=== PATIENT | male | born 1990 | race Caucasian/White ===

== ENCOUNTER 2024-05-16 07:54 | Outpatient (OUT) | payer OTHER, SELFPAY ==
[2024-05-16 08:15] LABS: Basophils Percent Auto 0.3 % (0.2-2.0); Eosinophils Absolute Auto 0.2 10^3/uL (0.0-0.7); Eosinophils Percent Auto 1.7 % (0.9-7.0); Hematocrit 45.9 % (42.0-54.0); Hemoglobin 15.5 g/dL (14.0-18.0); Immature Granulocytes Abs Auto 0.01 10^3/uL (0.00-0.03); Immature Granulocytes Pct Auto 0.1 % (0.0-0.5); Lymphocytes Absolute Auto 2.5 10^3/uL (1.2-3.8); Lymphocytes Percent Auto 26.5 % (20.5-60.0); Mean Corpuscular HGB Conc 33.8 g/dL (29.9-35.2); Mean Corpuscular Hemoglobin 29.8 pg (25.9-34.0); Mean Corpuscular Volume 88.3 fL (80.0-94.0); Mean Platelet Volume 9.9 fL (9.5-13.5); Monocytes Absolute Auto 0.6 10^3/uL (0.3-0.8); Monocytes Percent Auto 6.5 % (1.7-12.0); Neutrophils Absolute Auto 6.2 10^3/uL (1.4-6.5); Neutrophils Percent Auto 64.9 % (43.0-75.0); Platelet Count 251 10^3/uL (150-450); Red Cell Distribution Width 13.1 % (11.0-15.0); White Blood Count 9.5 10^3/uL (4.0-11.0)
[2024-05-16 08:27] LABS: Estimated Average Glucose 108 mg/dL; Glycohemoglobin A1C 5.4 % (4.5-6.2)
[2024-05-16 09:03] LABS: Alanine Aminotransferase 69 U/L (16-63); Albumin Globulin Ratio 1.1; Albumin Level 3.6 g/dL (3.4-5.0); Alkaline Phosphatase 80 U/L (46-116); Anion Gap 9.5; Aspartate Amino Transferase 48 U/L (15-37); BUN Creatinine Ratio 14.4; Bilirubin Total 0.3 mg/dL (0.2-1.0); Calcium 9.2 mg/dL (8.5-10.1); Carbon Dioxide 31.7 mmol/L (21.0-32.0); Chloride 105 mmol/L (98-107); Chol HDL Ratio 6.5; Cholesterol 207 mg/dL (<=200); Estimated GFR (African America >60 (>=60); Estimated GFR (Non-African Ame >60 (>=60); Free T3 2.98 pg/mL (2.18-3.98); Globulin 3.4 g/dL; Glucose 100 mg/dL (74-106); HDL Cholesterol 32 mg/dL (40-60); Potassium 4.2 mmol/L (3.5-5.1); Sodium 142 mmol/L (136-145); Thyroid Stimulating Hormone 2.074 uIU/mL (0.358-3.740); Triglycerides 122 mg/dL (<=150); VLDL CHOLESTEROL 24.4 mg/dL
[2024-05-18 13:08] LABS: Insulin 27.7 uIU/mL (2.6-24.9)
== END 2024-05-16 07:55 | disposition home or self-care (01) ==
PROVIDERS: PCP Family Medicine; Visit Provider Family Medicine
DX: Z00.00 Encounter for general adult medical examination without abnormal findings (principal)
CPT/HCPCS: 36415; 80053; 80061; 83036; 83525; 84436; 84443; 84481; 85025

== ENCOUNTER 2024-06-05 08:34 | Outpatient (OUT) | payer OTHER, SELFPAY ==
[2024-06-05 09:16] LABS: Alanine Aminotransferase 41 U/L (16-63); Albumin Level 3.5 g/dL (3.4-5.0); Alkaline Phosphatase 78 U/L (46-116); Anion Gap 11.1; Aspartate Amino Transferase 23 U/L (15-37); BUN Creatinine Ratio 9.2; Bilirubin Total 0.5 mg/dL (0.2-1.0); Calcium 9.3 mg/dL (8.5-10.1); Carbon Dioxide 27.4 mmol/L (21.0-32.0); Chloride 104 mmol/L (98-107); Estimated GFR (African America >60 (>=60 mL/min/1.73m^2); Estimated GFR (Non-African Ame >60 (>=60 mL/min/1.73m^2); Globulin 3.4 g/dL; Glucose 84 mg/dL (74-106); Potassium 3.5 mmol/L (3.5-5.1); Sodium 139 mmol/L (136-145); Total Protein 6.9 g/dL (6.4-8.2)
[2024-06-06 06:09] LABS: HBsAg Screen Negative (Negative); HCV Ab Non Reactive (Non Reactive); Hep A Ab, IgM Negative (Negative); Hep B Core Ab, IgM Negative (Negative)
[2024-06-08 20:08] LABS: Neisseria gonorrhoeae, NAA Negative (Negative)
== END 2024-06-05 08:35 | disposition home or self-care (01) ==
LOC: LAB 08:35
PROVIDERS: PCP Family Medicine; Visit Provider Family Medicine
DX: R74.8 Abnormal levels of other serum enzymes (principal); Z20.2 Contact with and (suspected) exposure to infections with a predominantly sexual mode of transmission
CPT/HCPCS: 36415; 80053; 80074; 87491; 87591

== ENCOUNTER 2025-07-03 09:04 | Outpatient (OUT) | payer OTHER, SELFPAY ==
--- OUTSIDE RECORDS SUMMARY | 2025-07-02 05:30 | XMS_ITS ---
Author Organization [facility] in [place] Address [address] [place] [address] Care Team Providers Care Kiln Repairer Name Role Phone Darrel Berger Primary Care Provider [phone] Allergies No Known Allergies REASON FOR VISIT annual Medications Medication SIG (Take, Route, Frequency, Duration) Notes Start Date End Date Status Omeprazole 40 MG TAKE 1 CAPSULE BY [facility] 30 MINUTES BEFORE MORNING MEAL EVERY DAY FOR 30 DAYS Orally Once a day; Duration: 90 days Active Social History Tobacco Use: Social History Observation Description Date Details (start date - stop date) Former Smoker 05/03/2000 - 04/02/2023 Tobacco Control (Standard) Question Answer Notes Tobacco use: Former smoker When did you start smoking?05/03/2000When did you stop smoking?04/02/2023UDIT-C (Standard) Question Answer Notes Did you have a drink containing alcohol in the p ast year? Yes How often did you have a drink containing alcohol in the past year?Never (0 point)How many drinks did you have on a typical day when you were drinking in the past year?1 or 2 drinks (0 point)How often did you have six or more drinks on one occasion in the past year?2 to 4 times a month (2 points)Points2 InterpretationNegative Vital Signs Weight 210.4 lbs 07/02/2025 Height 69.5 in 07/02/2025 Blood pressure systolic 124 mm Hg 07/02/20 25 Blood pressure diastolic 84 mm Hg 025 BMI 30.62 kg/m2 07/02/2025 Encounters Encounter Location Date Provider Diagnosis [facility] [address] [place] [address] 07/02/2025 Darrel Berger Well adult Z00.0 0 Assessments Encounter Date Diagnosis (ICD Code) Assessment Notes Treatment Notes Treatment Clinical Notes Section Notes 07/02/2025 Well adult (ICD-10 - Z00.00) Plan Of Treatment Medication Medication Name Sig Start Date Stop Date Notes Omeprazole 40 MG TAKE 1 CAPSULE BY [place] UT 30 MINUTES BEFORE MORNING MEAL EVERY DAY FOR 30 DAYS Orally Once a day; Duration: 90 days Pending Test Test Name Order Date HEMOGLOBIN A1C (GLYCO) 07/02/2025 LIPID PANEL (CHOL/TRIG/HDL/LDL) 07/02/20 25 THYROID PANEL (T4/TSH/FREE T3) CMP (COMP MET ZARATE) w/eGFR CKD-EPI 2024 CBC WITH DIFF 07/02/2025 Progress Notes * Alvaro CAIN BDOB:[birth year] (34 yo M)Acc No.[id number]:07/02/2025 UNLOCKED PROGRESS NOTE Progress Note Patient: Tracy BEAL Alvaro B :?Carlos Berger ([facility]), MDDOB:1990???Age: 34 Y???Sex:MaleDate:07/02/2025Phone:[phone]:[address] [place], [id number] In:09:20 AM ESTCheck Out:09:51 AM EST Subjective: * Chief Complaints: * 1 . Annual. * HPI: ???General:? OMeprazole working well for gerd. ???Depression Screening:?PHQ-2 (2015 Edition)?Little interest or pleasure in doing things? Not at all ?Feeling down, depressed, or hopeless??Not at all ?Total Score?0 * ROS: ???EENT:?hearing changes?denies.?visual changes?denies. non-healing mouth sores?denies.?swollen glands or neck lumps?denies.?hoarseness?denies.?sore throat?denies.?difficulty swallowing?denies.?nose bleeds?denies.?nasal congestion?denies.?ear ache?denies.?ear discharge denies.?ringing in ears?denies.?light sensitivity?denies.?eye pain?denies.?blurring?denies.?eye irritation?denies.?double vision?denies. vision loss?denies.?General/Constitutional:?Sweats:?Denies.?Fatigue?denies.?Sleep proble ms?denies.?Anorexia?denies.?Malaise?denies.?Weight loss?denies. Fatigue or Weakness?denies.?Fever or Chills?denies.?Cardiovascular:?Shortness of Breath w/lying flat?denies.?Lightheadedne ss/dizziness?denies.?Chest tightness/ heavy pressure?denies.?Swelling of legs, a nkles, or feet?denies.?Waking up with shortness of breath?denies.?Chest pain&#16 0;denies.?Palpitations?denies.?Weight gain?denies.?Respiratory:?Chronic or frequent cough?denies.?Coughing up blood&#1 60;denies.?Difficulty breathing?denies.?Productive cough?denies.?Snoring&#1 60;denies.?Shortness of breath that awakens from sleep (PND)?denies.?Chest pain? denies.?Sputum production?denies.?Wheezing?denies.?Musculoskeletal:?Joint pain?denies.?Joint Fluid?denies.?Backpain?denies.?Knee pain?denies.?Neck pain?denies.?Joint Stiffness?denies.?Muscle cramps?denies.?Weakness of muscles?denies.?Arthritis?denies.?Muscle aches?denies.?Pain in shoulder(s)?denies.?Swollen joints?denies.? * Medical History: G ERD (gastroesophageal reflux disease), Asthma. * Surgical History: s urgical repair lt thumb fracture , Tonsillectomy . * Hospitalization/Major Diagno stic Procedure: D enies Past Hospitalization. * Family History: F ather: , COPD, Asthma, diagnosed with Hypertension, Heart Disease. M other: alive. B rother(s): alive, diagnosed with Heart Disease. S ister(s): alive. 1 brother(s) , 1 sister(s) . 2 son(s) , 4 daughter(s) . . * Social History: ???Tobacco Use:?Tobacco Control (Standard)?Tobacco use:?Former smoker ?When did you start smoking??05/03/2000 ?When did you stop smoking??04/02/2023 ???Drug/Alcohol:?AUDIT-C (Standard)?Did you have a drink containing alcohol in the past year??Yes ?How often did you have a drink containing alcohol in the past year?? Never (0 point) ?How many drinks did you have on a typical daywhen you were drinking in the past year??1 or 2 drinks (0 point) ?How often did you have six or more drinks on one occasion in the past year??2 to 4 times a month (2 points) ?Points?2 ?Interpretation?Negative * Medications: T aking Omeprazole 40 MG Capsule Delayed Release TAKE 1 CAPSULE BY MOUTH 30 MINUTES BEFORE MORNING MEAL EVERY DAY FOR 30 DAYS , Discontinued Adipex-P(Phentermine HCl) 37.5 MG Tablet 1 tablet before breakfast Orally Once a day , Discontinued Azithromycin 250 MG Tablet 4 tabs once Orally daily , Discontinued Ciprofloxacin HCl 500 MG Tablet 1 tablet Orally every 12 hrs , Discontinued Multivitamin(Multiple Vitamin) - Tablet 1 tablet Orally Once a day , Medication List reviewed and reconciled with the patient * Allergies: N .K.D.A. Objective: * Vitals: W t:210.4lbs, Ht: 69.5 in, BP:124/84mm Hg, BMI:30.62Index, Ht-cm: 176.53 cm, Wt- k.44 kg. * Examination: ???Physical Exam: ?GENERAL:?well developed, well nourished, in no acute distress.?HEAD:?normocephalic/atraumatic.?EYES:?pupils equal, round and reactive to light, conjunctivae and sclerae normal.?EARS:?no deformity or lesion of external ear, canals and TM appear normal bilaterally, TM's intact, not inflamed with normal light reflex, hearing grossly normal to conversational speech.?NOSE:?no deformity, discharge, inflammation, or lesions. ?MOUTH:?mucous membranes moist, normal oropharynx and posterior pharynx without lesions or exudates, tongue normal, dentition normal.?NECK:?neck supple, no masses or palpable cervical nodes, trachea midline, thyroid without nodules, masses, tenderness, or enlargement.?CHEST:?no chest wall deformity, no chest wall tenderness. ?LUNGS:?normal respiratory effort and clear to auscultation, no wheezes, rales, or rhonchi, good air exchange.?CARDIO:?regular rate and rhythm, normal S1 and S2, nor murmur, rub, or gallop.?PULSES:?normal capillary refill.?ABDOMEN:?soft, non-distended, non-tender, no masses.?MUSCULOSKELETAL:?no deformity or scoliosis noted, normal range of motion, joints normal, no erythema, edema, effusion, or ecchymosis.?EXTREMITY:?no clubbing, cyanosis, edema, or deformity withnormal ROM in both upper and lower bilateral extremities.?NEUROLOGIC:?grossly normal.?SKIN:?no rashes, ulcerations, or suspicious lesions.?LYMPH NODES:?no cervical adenopathy, nodes normal.?MENTAL STATUS:?alert and oriented x3, normal mood and affect.? Assessment: * Assessment: 1.?Well adult - Z00.00 (Primary)??? Plan: * Treatment: Refill Omeprazole Capsule Delayed Release, 40 MG, TAKE 1 CAPSULE BY MOUTH 30 MINUTES BEFORE MORNINGMEAL EVERY DAY FOR 30 DAYS, Orally, Once a day, 90 days, 90, Refills 3.?LAB: HEMOGLOBIN A1C (GLYCO) ?LAB: LIPID PANEL (CHOL/TRIG/HDL/LDL) ?LAB: THYROID PANEL (T4/TSH/FREE T3) ?LAB: CMP (COMP MET ZARATE) w/eGFR CKD-EPI ?LAB: CBC WITH DIFF * * Electronic signature of Darrel Berger MD, [id number] on 07/03/2025 at 09:09 AM EDT Sign off status: PendingVisit Status:?CHK (Check Out) * Provider: Leander Berger ([facility])MD Date: Generated for Printing/Faxing/eTransmitting on:?07/03/2025 09:09 AM EDT History and Physical Notes * HPI (History of Present Illness) CategorySub-CategoryDetailNotesCategory NotesGeneralOMeprazole working well for gerdDepression ScreeningPHQ-2 (2015 Edition)Little interest or pleasure in doing things?: Not at allFeeling down, depressed, or hopeless?: Not at allTotal Score: 0 Examination CategorySub-CategoryDetailNotesCategory NotesPhysical ExamGENERAL:well developed, well nourished, in no acute distressHEAD:normocephalic/atraumatic EYES:pupils equal, round and reactive to light, conjunctivae and sclerae normal EARS:no deformity or lesion of external ear, canals and TM appear normal bilaterally, TM's intact, not inflamed with normal light reflex, hearing grossly normal to conversational speechNOSE:no deformity, discharge, inflammation, or lesionsMOUTH:mucous membranes moist, normal oropharynx and posterior pharynx without lesions or exudates, tonguenormal, dentition normalNECK:neck supple, no masses or palpable cervical nodes, trachea midline, thyroid without nodules, masses, tenderness, or enlargementCHEST:no chest wall deformity, no chest wall tendernessLUNGS:normal respiratory effort and clear to auscultation, no wheezes, rales, or rhonchi, good air exchangeCARDIO:regular rate and rhythm, normal S1 and S2, nor murmur, rub, or gallopPULSES:normal capillary refillABDOMEN:soft, non-distended, non-tender, no massesRECTAL:MUSCULOSKELETAL:no deformity or scoliosis noted, normal range of motion, joints normal, no erythema, edema, effusion, or ecchymosisEXTREMITY:no clubbing, cyanosis, edema, or deformity with normal ROM in both upper and lower bilateral extremitiesNEUROLOGIC:grossly normalSKIN:no rashes, ulcerations, or suspicious lesionsLYMPH NODES:no cervical adenopathy, nodes normalMENTAL STATUS:alert and oriented x3, normal mood and affect
--- OUTSIDE RECORDS SUMMARY | 2025-07-03 09:09 | XMS_ITS | CCD ---
Author Organization [facility] Care Team Providers Care Green Marketing Analyst Name Role Phone VIDAL ROLON Admitting Unavailable JEFFERSONHEIMVIDAL Attending Unavailable HOUSE, JORGITO Referring Unavailable HOUSE, JORGITO Primary Care Unavailable MI Procedure Practitioner Unavailab VIDAL Neil Surgeon Unavailable MI Procedure Practitioner Unavailab KRISTIE Ortiz Surgeon Unavailable JANES, MARTÍNEZ Admitting Unavailable MARTÍNEZ MARRERO Attending Unavailable SELF, REFERRED Referring Unavailable HOUSE, JORGITO Primary Care Unavailable HOUSE, DR DAY Primary Care Unavailable HOUSE, DR DAY Consulting Unavailable WAKEFIELD, DR DAY Attending Unavailable HOUSE, DR DAY Admitting Unavailable LEANA, DR FITO Molina Consulting Unavailable HOUSE, DR DAY Primary Care Unavailable TIFFANIE, MERRITT Admitting Unavailable TIFFANIE, MERRITT Consulting Unavailable TIFFANIE, MERRITT Attending Unavailable TIFFANIE, MERRITT Attending Unavailable CARLOTTA, DR DAY Primary Care Unavailable TIFFANIE, MERRITT Admitting Unavailable TIFFANIE, MERRITT Consulting Unavailable CARLOTTA, DR DAY Admitting Unavailable HOUSE, DR DAY Attending Unavailable Nieves Baldwin Unavailable Medications Current Medications MedicationDrug Class(es)DatesSig (Normalized)Sig (Original)amoxicillin 500 mg oral tablet (1 source)Penicillin-class AntibacterialStart: 30-34-3280osus 1 tablet by mouth every eight hoursAmoxicillin 500 MG 1 tablet Orally Three times a day for 10 day(s) Jun, ActiveCortisporin Otic 1%-0.35%-1000 units/ml (1 source)Start: 39-81-5792Lsgqkzyckow Otic 1%-0.35%-1000 units/ml 3 drops left ear tid for 7 days Jun, ActiveOmeprazole (1 source)Proton Pump InhibitorPriLOSEC Active Problems Active Problems Problem ClassificationProblemDateDocumented DateEpisodic/ChronicEsophageal disorders (1 source)Gastro-esophageal reflux disease without esophagitis; Translations: [GERD WITHOUT ESOPHAGITIS]Onset: 99-59-9200AldmmskWgxrpetdqmacs and screening for infectious disease (4 sources)Encounter for immunization; Translations: [ENCOUNTER FOR IMMUNIZATION]Onset: 63-87-6231Ickanpba Past or Other Problems Problem ClassificationProblemDateDocumented DateEpisodic/ChronicAbdominal pain (4 sources)Unspecified abdominal pain; Translations: [UNSPECIFIED ABDOMINAL PAIN]Onset: 66-04-0333DqbcgixkIxkub ear and sense organ disorders (1 source)Unspecified acute noninfective otitis externa, left ear; Translations: [Acute otitis externa of left ear, unspecified type H60.502]Onset: 06-14-2021 Resolved: 65-88-6451FszgliycHgrcqc media and related conditions (1 source)Otitis media, unspecified, unspecified ear; Translations: [Acute otitis media, unspecified otitis media type H66.90]Onset: 06-14-2021 Resolved: 80-71-2601Peqbkdyp Results Test NameValueInterpretationReference RangeFacilityHAND LEFT 2 VWSon 04-29-2020 HAND LEFT 2 VWSUniversity of [facility] Department of Radiology [address] [place] [id number] Patient Name: RICH CHONG : 1990 Sex: M Age: Race: White Pt. Location: Patient Status: Ordered Date: 04/29/2020 2:00:00 PM Completed Date: 04/29/2020 02:01 PM Requesting Provider: MARTÍNEZ MARRERO Attending Provider: Report Copy To: Signs & Symptoms: S69.92XD Unsp injury of left wrist, hand and finger(s), subs encntr I10 History: [place] Comments: Views (X-RAY, HAND): PA, Lateral Exam: HAND LEFT 2 VWS HAND LEFT 2 VWS 04/29/2020 2:01 PM CLINICAL INDICATIONS: S69.92XD Unsp injury of left wrist, hand and finger(s), subs encntr I10 TECHNOLOGIST COMMENTS: Follow up left hand injury about six weeks ago. QUESTION FOR THE RADIOLOGIST: Views (X-RAY, HAND): PA, Lateral PROTOCOL: AP(PA) and Lateral views were obtained. COMPARISON: 03/28/2020 FINDINGS: Comminuted tuft fracture of the first distal phalanx is redemonstrated. The distal fragment appears to be becoming well-corticated. No evidence of bridging callus. No significant soft tissue swelling. No malalignment or new fracture identified. IMPRESSION: Continued healing of thumb tuft fracture. Approved by:Yg Crisostomo04/29/2020 2:19 PM. I, Go Jones,have reviewed the images and reports Electronically signed: Go Jones. Transcribed by: [email or web address], User Resident: YG DODD Electronically Signed by: GO JONES @ 04/29/2020 02:53 PM I personally read this/these film(s) with this [facility] Medical CenterComment on above:Order Comment: Views (X-RAY, HAND): PA, LateralFINGER LEFT MIN 2 [facility] 90-59-2369TDTVNO LEFT MIN 2 [facility]Par[facility] Department of Radiology [address] [place] [id number] Patient Name: RICH CHONG : 1990 Sex: M Age: Race: White Pt. Location: 84 Patient Status: Ordered Date: 03/28/2020 2:10:00 PM Completed Date: 03/28/2020 02:09 PM Requesting Provider: MARTÍNEZ MARRERO Attending Provider: Report Copy To: Signs & Symptoms: M79.645 Pain in left finger(s) I10 History: Comments: Exam: FINGER LEFT MIN 2 VWS FINGER LEFT MIN 2 VWS 03/28/2020 2:09 PM CLINICAL INDICATIONS: M79.645 Pain in left finger(s) I10 TECHNOLOGIST COMMENTS: surgery to left hand 1st digit 03/15/20 follow up QUESTION FOR THE RADIOLOGIST: PROTOCOL: AP,Lateral and Oblique views were obtained. COMPARISON: None FINDINGS: Comminuted fracture distal tuft of the left thumb. This is likely an open fracture. Diffuse soft tissue swelling. Joint unremarkable. IMPRESSION: Comminuted open fracture distal tuft of the left Electronically signed: Raphael Edmond. Transcribed by: [email or web address], User Resident: Electronically Signed by: RAPHAEL EDMOND @ 03/28/2020 03:48 PMNormalThe [facility] Clinic [facility] HospitalOperative Reporton [id number] ReportMR#: [id number] S [facility] Pt. Name: Rich Chong Room #: 0C Discharge 03/15/2020 Date: Birthdate: 1990 OPERATIVE REPORT DATE OF SURGERY: 03/15/2020 SURGEON: Vidal Rolon M.D. Assistants: Richard Wynne MD Preop diagnosis: Left thumb distal phalanx fracture and nailbed injury Postop diagnosis: same Procedure performed: nail removal, nailbed repair, irrigation and debridement of open fracture Implants: none Anesthesia: MAC EBL: minimal Specimens: none Description of Procedure - Patient was met in the preop area where written consent was reviewed, and the correct limb was marked by Dr. Rolon. The patient was then brought back to the operating room and placed under local anesthesia with MAC, placed supine with arm board, and then prepped and draped in the usual sterile fashion. Preoperative antibiotics were given, a preoperative timeout was performed using 2 separate patient identifiers, and the correct surgical site was again confirmed by myself and Dr. Rolon. - We began by taking xrays to evaluate fracture and determined that the fracture fragment would not benefit from percutaneous pin placement. We then removed the nail beginning proximally by using [place]. After nail was removed, a transverse laceration was identified across the nailbed and probed down to bone. Fracture site was irrigated with saline then betadine then saline again. Laceration of nailbed was sutured with 5-0 chromic gut suture. A small piece of adaptic was placed under nail fold and sutured in place with 3-0 novofil. Additional sutures were used to fasten adaptic over nailbed. The site was again irrigated then covered in bacitracin. Dressing was applied. - All counts were correct and the patient was then successfully awoken from anesthesia and brought to the PACU without complication. - Plan is for patient to discharge from PACU with Rx for pain and to follow up in clinic in 10-14 days for postoperative evaluation. - Dr. Rolon was present for all critical portions of the case and made all decisions regarding the patients care. Electronically Signed by: Vidal Rolon M.D. 03/21/2020 04:10 P Vidal Rolon M.D. I was present for the martinez and critical portions and I was otherwise immediately available to assist. Date Dict: 03/15/2020/12:56 P/David Wynne MD Date Trans: 03/15/202012:56 P/ Copied/Pasted: 03/21/2020 02:18 P/renny ADKINS_JN:[id number] cc: Jorgito Laguerre D.O. [address] AbigailMer[facility] West HospitalyC[facility] Hospital [address]KgwqhiCspSt. John of God HospitalFINGER LEFT MIN 2 VWS on 55-58-6402NZPDFS LEFT MIN 2 VWSUniversselect medical cle[facility], [facility] Department of Radiology [address] [place] [phone] Patient Name: RICH CHONG : 1990 Sex: M Age: Race: White Pt. Location: Patient Status: O Ordered Date: 03/15/2020 7:10:00 AM Completed Date: 03/15/2020 11:28 AM Requesting Provider: VIDAL ROLON Attending Provider: VIDAL ROLON Report Copy To: Signs & Symptoms: Right thumb nail bed repair with pinning with History: Right thumb nail bed repair with pinning with Comments: Right thumb nail bed repair with pinning with Exam: FINGER LEFT MIN 2 VWS FINGER LEFT MIN 2 VWS 03/15/2020 11:28 AM CLINICAL INDICATIONS: Right thumb nail bed repair with pinning with TECHNOLOGIST COMMENTS: Intra op. Nail bed repair. Dr Rolon used 1 second of fluoro. Dose: 0.06mGy 2 images in PACS. QUESTION FOR THE RADIOLOGIST: Right thumb nail bed repair with pinning with PROTOCOL: AP,Lateral and Oblique views were obtained. COMPARISON: March 14, 2020 FINDINGS: 2 limited views of the left index were obtained intraoperatively using the C-arm documenting fluoroscopic guidance during hardware fixation of the terminal tuft fracture. Total fluoroscopy time is 1 second. Total radiation exposure is 0.06 mg. Images are referred to the clinical service for correlation. IMPRESSION: Images are obtained for documentation purposes. Electronically signed: Go Jones. Transcribed by: [email or web address], User Resident: Electronically Signed by: GO MARIEConnie @ 03/15/2020 03:36 PMNormalProMedica Defiance Regional HospitalComment on above:Order Comment: Right thumb nail bed repair with pinning with GLUCOSE LABon 97-17-5718Defpaah [Mass/Vol]105 mg/jTRnjb10-227SvgProMedica Defiance Regional HospitalComment on above:Performed By: #### [id number] #### [facility] [address]*MRSA/MSSA DNA NASALon 03-14-2020*MRSA/MSSA DNA NASAL Clinical Report: (D) Specimen: NASAL SWAB Collected: 03/14/2020 16:43 Status: Final Last Updated: 03/14/2020 23:13 MSSA DNA (Final) Methicillin Susceptible Staphylococcus aureus DNA Detected MRSA DNA (Final) NegativeNoCherrington HospitalComment on above:Performed By: #### [id number] #### [facility] [address]*SARS-CoV-2 COVID-19on 99-66-8725ZYTO-COVID-19Not Detected NormalNot DetectedThe [facility] HospitalComment on above:Order Comment: The Aptima SARS-CoV-2 assay is a nucleic acid amplification test intended for the qualitative detection of RNA from SARS-CoV-2 isolated and purified from nasopharyngeal (MUSIC COORDINATOR), nasal and oropharyngeal (OP) swab specimens from patients with signs and symptoms of infection who are suspected of COVID-19. Results are for the identification of SARS-CoV-2 RNA. The SARS-CoV-2 RNA is generally detectable in nasopharyngeal and oropharyngeal swabs during the acute phase of infection. The Aptima SARS-CoV-2 Assay on the [employer] system is intended for use by laboratory personnel specifically instructed and trained in the operation of the [employer] system. The Aptima SARS-CoV-2 assay is only for use under the Food and Drug Administration Emergency Use Authorization. Testing is limited to laboratories certified under the Clinical Laboratory Improvement Amendments of 1988 (CLIA), 42 U.S.C. ???263a, to perform high complexity tests. Not Detected: Not detected does not preclude SARS-CoV-2 infection and should not be used as the sole basis for patient management decisions. Not detected results must be combined with clinical observations, patient history, and epidemiological information.Performed By: #### 55059 #### [facility] [address] [place] [address], [facility] MEXICOAPTCobre Valley [facility] 48-52-7310aXTN Coag (Bld) [Time]28.2 sNormal 25.0-35.0The [facility] HospitalComment on above:Result Comment: ALL RESULTS MUST BE INTERPRETED WITH RESPECT TO BLOOD DRAWING ARTIFACT OR DILUTION ERROR OF ANTICOAGULANT AT THE TIME OF SAMPLING. THE APTT SHOULD NOT BE USED TO MONITOR UNFRACTIONATED HEPARIN THERAPY, THIS LABORATORY NO LONGER HAS AN ESTABLISHED THERAPEUTIC RANGE BASED ON THE APTT. IT IS RECOMMENDED THAT THE UFH - HEPARIN ASSAY (ANTI-XA ACTIVITY) BE USED FOR THIS PURPOSE.Performed By: #### [id number], 06020 #### [address] [place] [address], [facility] SOUTHER[facility] NEW MEXICOBASIC METABOLIC PANELon 28-60-7369Ppbxeus [Mass/Vol]9.8 mg/dLNormal8.6-10.3The [facility] HospitalComment on above: Performed By: #### 29198 #### [facility] [address] [facility] [place] [address], USAChloride [Moles/Vol]104 mmol/CUitthg83-819Ocl [facility] HospitalComment on above:Performed By: #### 96902 #### [facility] [address] [facility] [place] [address], USACO2 [Moles/Vol]26 mmol/VAzlklj37-25Xeg [facility] HospitalComment on above:Performed By: #### 65040 #### [facility] [address] [facility] [place] [address], USACreatinine [Mass/Vol]0.83 mg/dLNormal0.70-1.30The [facility] HospitalComment on above:Performed By: #### 01342 #### [facility] [address] [place] [address], USAGFR/1.73 sq M predicted among blacks MDRD (S/P/Bld) [Vol rate/Area]mL/min/{1.73_m2}Normal>60The [facility] Comment on above:Performed By: #### 69431 #### [facility] [address] [place] [address], USAGFR/1.73 sq M predicted among non-blacks MDRD (S/P/Bld) [Vol rate/Area]mL/min/{1.73_m2}Normal>60The [facility] Comment on above:Performed By: #### 54415 #### [facility] [address] [place] [address], USAGlucose [Mass/Vol]98 mg/fVDfjczm08-122Mfo [facility] HospitalComment on above:Performed By: #### 85633 #### [facility] [address] [facility] [place] [address], USAPotassium [Moles/Vol]4.2 mmol/LNormal3.5-5.1The [facility] HospitalComment on above:Performed By: #### 74096 #### [facility] [address] [facility] [place] [place] [address], USASodium [Moles/Vol]137 mmol/ANdmzey467-766Vjl [facility] HospitalComment on above:Performed By: #### 24531 #### [facility] [address] [place] [address], USAUrea nitrogen [Mass/Vol]8 mg/dLNormal7-25The [facility] HospitalComment on above:Performed By: #### 00172 #### [facility] [address] [facility] [place] [address], [facility] S[facility]THER[facility] NEW MEXICOCBC W/DIFFon 49-30-8862AIO BASOPHILS0.0 10*3/uLNormal 0.0-0.2The [facility] HospitalComment on above:Performed By: #### 94784 #### [facility] [address] [facility] [place] [address], USAABS IMM GRANS0.0 10*3/uLNormal0.0-0.2The [facility] HospitalComment on above:Performed By: #### 63878 #### [facility] [address] [facility] [place] [address], [facility] S[facility] NEW MEXICOABS NEUTROPHILS8.0 10*3/uLHigh1.6-7.6The [facility] HospitalComment on above:Performed By: #### 79221 #### [facility] [address] [facility] [place] [address], [facility] S[facility]THER[facility] MEXICOBasophils/100 WBC (Bld)0.2 %Normal0.0-1.0The [facility] HospitalComment on above:Performed By: #### 18109 #### [facility] [address] [facility] [place] [address], [facility] MEXICOEosinophils (Bld) [#/Vol]0.1 10*3/uLNormal0.0-0.5The [facility] HospitalComment on above:Performed By: #### 97450 #### [facility] [address] [facility] [place] [address], USAEosinophils/100 WBC (Bld)0.5 %Normal0.0-6.0The [facility] HospitalComment on above:Performed By: #### 74279 #### [facility] [address] [place] [address], USAErythrocyte distribution width (RBC) [Ratio]12.7 %Normal 11.5-15.0The [facility] HospitalComment on above:Performed By: #### 63581 #### [facility] [address] [place] [address], USAHematocrit (Bld) [Volume fraction]46.2 %Jfuexd56.0-50.0The [facility] HospitalComment on above:Performed By: #### 34607 #### [facility] [address] [facility] [place] [place] [address], USAHemoglobin (Bld) [Mass/Vol]15.6 g/gLRpbbgk59.0-17.0The [facility] HospitalComment on above:Performed By: #### 33142 #### [facility] [address] [facility] [place] [address], USAIMMATURE GRANS0.2 %Normal0.0-1.0The [facility] HospitalComment on above:Performed By: #### 99831 #### [facility] [address] [facility] [place] [address], USALymphocytes (Bld) [#/Vol]1.7 10*3/uLNormal1.2-4.0The [facility] HospitalComment on above:Performed By: #### 81821 #### [facility] [address] [facility] [place] [place] [address], USALymphocytes/100 WBC (Bld)16.7 %Low20.0-45.0The [facility] HospitalComment on above:Performed By: #### 71174 #### [facility] [address] [facility] [place] [address], USAMCH (RBC) [Entitic mass]29.8 hsNhlnhc93.0-33.0The [facility] HospitalComment on above:Performed By: #### 50973 #### [facility] [address] [facility] [place] [address], USAMCHC (RBC) [Mass/Vol]33.8 g/zLStnkdi64.0-35.0The [facility] HospitalComment on above:Performed By: #### 07143 #### [facility] [address] [place] [address], [facility] SOUTHER[facility] NEW MEXICOMCV (RBC) [Entitic vol]88.3 wICzhniz04.0-98.0The [facility] HospitalComment on above:Performed By: #### 40048 #### [facility] [address] [place] [address], USAMonocytes (Bld) [#/Vol]0.6 10*3/uLNormal0.1-1.0The [facility] HospitalComment on above:Performed By: #### 13810 #### [facility] [address] [place] [address], USAMONOS5.8 %Normal5.0-12.0The [facility] HospitalComment on above:Performed By: #### 67586 #### [facility] [address] [place] [address], USANeutrophils/100 WBC (Bld)76.6 %High40.0-72.0The [facility] HospitalComment on above:Performed By: #### 55237 #### [facility] [address] [facility] [place] [address], USANucleated RBC/100 WBC (Bld) [Ratio]0 %Normal0-0The [facility] HospitalComment on above:Performed By: #### 48114 #### [facility] [address] [facility] [place] [place] [address], USAPLAT ATP881 10*3/pLHrkijf500-665Kwr [facility] HospitalComment on above:Performed By: #### 66715 #### [facility] [address] [place] [address], USARBC (Bld) [#/Vol]5.23 10*6/uLNormal4.20-5.70The [facility] HospitalComment on above:Performed By: #### 11251 #### [facility] [address] [facility] [place] [address], [facility] S[facility] MEXICOWBC (Bld) [#/Vol]10.39 10*3/uLNormal4.00-10.60The [facility] HospitalComment on above:Performed By: #### 98694 #### [facility] [address] [facility] [place] [address], USAPROTHROMBIN TIMEon 33-06-8471CJS Coag (PPP) [Relative time] 1.04 {INR}Normal0.91-1.16The [facility] HospitalComment on above:Result Comment: ACCCP RECOMMENDED INR FOR WARFARIN THERAPY ------- CONDITION INR PROPHYLAXIS OF VENOUS THROMBOSIS 2-3 (HIGH-RISK SURGERY) TREATMENT OF VENOUS THROMBOSIS 2-3 TREATMENT OF PULMONARY EMBOLISM 2-3 PREVENTION OF SYSTEMIC EMBOLISM: 2-3 ACUTE MYOCARDIAL INFARCTION TISSUE HEART VALVES VALVULAR HEART DISEASE ATRIAL FIBRILLATION RECURRENT SYSTEMIC EMBOLISM MECHANICAL HEART VALVE 2.5-3.5 FROM: ORAL ANTICOAGULANTS. MECHANISM OF ACTION, CLINICAL EFFECTIVENESS, AND OPTIMAL THERAPEUTIC RANGE. CHEST 1995;108:231S-246S.Performed By: #### 22951, 48842 #### [facility] [address] [facility] [place] [address], USAPT Coag (PPP) [Time]13.6 rAgjwyc85.3-14.8The [facility] HospitalComment on above:Result Comment: ALL RESULTS MUST BE INTERPRETED WITH RESPECT TO BLOOD DRAWING ARTIFACT OR DILUTION ERROR OF ANTICOAGULANT AT THE TIME OF SAMPLING.Performed By: #### 72580, 86057 #### [facility] [address] [facility]. [address] Vital Signs Date TimeVital SignValuePerforming YgadrmktuGwmpprxa96-87-9098 11:40-0400Body okvffu811.8 Leslie Baldwin Other noFoundation for Community Partnerships Other 10-13-2021 11:40-0400Body mass index (BMI) [Ratio] 35.87 kg/b0Jhdlhhoctavia Baldwin Other [employer] Other 10-13-2021 11:40-0400Body jwzneccxksl42.4 [degF]Nieves Velamond Other [employer] Other 10-13-2021 11:40-0400Body opswwl127.4 kgNieves Baldwin Other [employer] Other 10-13-2021 11:40-0400Diastolic blood avtcnopx56 mm[Hg] Nieves Velamond Other [employer] Other 10-13-2021 11:40-0400Respiratory rate18 /minNieves Baldwin Other [employer] Other 10-13-2021 11:40-8415CiD0% (BldA) [Mass fraction]99 % Nieves Velamond Other [employer] Other 10-13-2021 11:40-0400Systolic blood rxcdeyxd473 mm[Hg] Nieves Velamond Other [employer] Other Encounters Encounter DateEncounter TypeCare ProviderFacilityStart: 10-26-2779Amjiaa outpatient new 20 minutesNieves DymondFPG Urgent Care ClydeStart: 02-28-2021 End: 72-99-3006ftavodingpLC CHARLES HOUSEFacility:E1Cgsft: 02-07-2021 End: 50-60-1737qnrrwkxioxHLBDTW ROSSFacility:X7Nnwct: 11-08-2020 End: 01-04-0636ufyrwntxazSR CHARLES HOUSEFacility:F9Buzhg: 59-45-7219btbbdmdbqs DR DAY HOUSEFacility:N2Mcaza: 04-29-2020 End: 96-57-3748Shkvcnr encounter procedureGREGORY OTTOFacility:[facility] MEXICOtart: 03-15-2020 End: 78-46-0336Fztlval encounter procedureNABIL EBRAHEIMFacility:[facility] Procedures DateProcedureProcedure DetailPerforming ClinicianStart: 87-58-4820Igik integ extremities ant trunk & perineum nosANDREW CASABIANCAStart: 96-82-3622Vwuwfr nail bedNABIL EBRAHEIM Payers DatePayer CategoryPayerPolicy [id number] .[id number] .[id number] .[id number] [id number] 30-89-7339Oykp-payWorker's [id number] Social History DateTypeDetailFacilitySex Assigned At [facility] Other Evaluation note 06-14-2021 Note Date & PoemMsxwAdksbtxt92-46-8409 Evaluation note* Encounter Date Diagnosis Assessment Notes Treatment Notes Treatment Clinical Notes Jun, Acute otitis media, unspecified otitis media type (ICD-10 - H66.90) Jun,cute otitis externa of left ear, unspecified type (ICD-10 - H60.502) Drink plenty fluids, get plenty of rest. Take the antibiotic as prescribed until gone. Use the eardrops as prescribed for 7 days. Follow-up with your family physician if no improvement in 2 to 3 days. Off work today and tomorrow. [employer] Other Clinical Note 11-08-2020 Note Date & KlmxIpnzBcilmiwz05-18-1315 NotePROCEDURE: XR GI UPPER AIR KUB DUAL CONTRAST COMPARISON: None. HISTORY: Abdominal pain TECHNIQUE: An air contrast upper gastrointestinal series was performed in the usual manner. Standard level fluoroscopic mode of operation utilized. FINDINGS: ESOPHAGUS:Mild gastroesophageal reflux. No obstruction, mucosal irregularity, stricture, or abnormal dilation. STOMACH: No obstruction, mass, or ulceration. Normal motility. DUODENUM:No ulceration or diverticulum. OTHER: Negative. IMPRESSION: 1. Mild/moderate gastroesophageal reflux. No appreciable esophageal/mucosal abnormality. Electronically authenticated by: FITO DUEÑAS Date: 2020-11-08 10:41[facility] History general Narrative - Reported Note Date & TypeNoteFacilityHistory general Narrative - Reported* Type Description Date Medical History acid reflux Surgical HistoryThumb Surgery LeftHospitalization Historysee above Toutpost Other Summary Purpose Family History No Family History Records FoundNo Family History Records Found Advance Directives No Advanced Directives Records FoundNo Advanced Directives Records Found Hospital Course Note MR#: [id number] [facility] Pt. Name: Rich Chong Admitted: 03/15/2020 Discharged: Date of : 1990 Physician: Vidal Rolon M.D. DISCHARGE SUMMARY Patient name: Rich Chong Date of Operation: 03/15/2020 Surgeon: Vidal Rolon MD Assistants: Richard Wynne MD Preop diagnosis: Left thumb distal phalanx fracture and nailbed injury Postop diagnosis: same Procedure performed: nail removal, nailbed repair, irrigation and debridement of open fracture Implants: none Anesthesia: MAC EBL: minimal Specimens: none Indication: Description of Procedure - Patient was met in the preop area where written consent was reviewed, and the correct limb was marked by Dr. Rolon. The patient was then brought back to the operating room and placed under local anesthesia with MAC, placed supine with arm board, and then prepped and draped in the usual sterile fashion. Preoperative antibiotics were given, a preoperative vu (more content not included)... Additional Source Comments (unrecognized sect ion and content) No Status Records FoundNo Status Records Found INFORMATION SOURCE (unrecogn ized section and content) DATE CREATED AUTHOR 05/05/2020 [facility] DATE CREATED AUTHOR AUTHOR'S ORGANIZ ATION 03/31/2021 [facility] REASON FOR VISIT (unrecogniz ed section and content) LEFT EARACHE DENIES OTHER SX . FOR RECORDS PERTAINING TO PATIENTS WHO ARE OR HAVE BEEN ENROLLED IN A CHEMICAL DEPENDENCY/SUBSTANCEABUSE PROGRAM, SOME INFORMATION MAY BE OMITTED. This clinical summary was aggregated from multiple sources. Caution should be exercised in using it in the provision of clinical care. This summary normalizes information from multiple sources, and as a consequence, information in this document may materially change the coding, format and clinical context of patient data. In addition, data may be omitted in some cases. CLINICAL DECISIONS SHOULD BE BASED ON THE PRIMARY CLINICAL RECORDS. [employer] provides no warranty or guarantee of the accuracy or completeness of information in this document.
--- OUTSIDE RECORDS SUMMARY | 2025-07-03 09:10 | XMS_ITS | Clinical Summary ---
Author Organization The [facility] Address [address] [place] [address] Care Team Providers Care Fish Icer Name Role Phone Unavailable Primary Care Provider Unavailabl e Social History Tobacco UseTypesPacks/DayYears UsedDateSmoking Tobacco: Never AssessedSex and Gender InformationValueDate RecordedSex Assigned at BirthNot on fileLegal Sex Male03/01/2022 12:28 AM EDTGender IdentityNot on fileSexual OrientationNot on file Last Filed Vital Signs Vital SignReadingTime TakenCommentsBlood Pressure--Pulse--Temperature-- Respiratory Rate--Oxygen Saturation--Inhaled Oxygen Concentration--Ryehne31.7 kg (200 lb)04/29/2020 2:10 PM FWLNsrgnf264.3 cm (5' 9 )04/29/2020 2:10 PM EDTBody Mass Index29.53004/29/2020 2:10 PM EDT Plan of Treatment Not on file
--- OUTSIDE RECORDS SUMMARY | 2025-07-03 09:10 | XMS_ITS | Clinical Summary ---
Author Organization [facility] Healthcare Address [address] [place] [address] Care Team Providers Care Supervisor Home Energy Consultant Name Role Phone Unavailable Primary Care Provider Unavailabl e Social History Tobacco UseTypesPacks/DayYears UsedDateSmoking Tobacco: Never AssessedSex and Gender InformationValueDate RecordedSex Assigned at BirthNot on fileLegal Sex Male11/14/2022 11:06 PM EDTGender IdentityNot on fileSexual OrientationNot on file Last Filed Vital Signs Vital SignReadingTime TakenCommentsBlood Pressure--Pulse--Temperature-- Respiratory Rate--Oxygen Saturation--Inhaled Oxygen Concentration--Awnpfm16.3 kg (210 lb)11/07/2020 12:00 PM ESTHeight--Body Mass Index-- Plan of Treatment Not on file
--- OUTSIDE RECORDS SUMMARY | 2025-07-03 09:10 | XMS_ITS | Patient Health Record ---
Author Organization The [facility] [place] Address [address] [place] [address] Care Team Providers Care Outcome Analyst Name Role Phone Darrel Berger Primary Care Provider [phone] Allergies No Known Allergies Reason For Referral No Information Medications Medication SIG (Take, Route, Frequency, Duration) Notes Start Date End Date Status Omeprazole 40 MG TAKE [address] [facility] 30 MINUTES BEFORE MORNING MEAL EVERY DAY [...] 4 times a month (2 points)Points2 InterpretationNegative Problems Problem Type SNOMED Code ICD Code Onset Dates Problem Status W/U Status Risk Notes Problem Asthma (957144930) Asthma (J45.909) ActiveconfirmedProblemGastroesophageal reflux disease (826604359)GERD (gastroesophageal reflux disease) (K21.9)ActiveconfirmedProblemWell adult (190982164)Well adult (Z00.00)ActiveconfirmedProblemExposure to sexually transmissible disorder (event) (070355542)STD exposure (Z20.2)Activeconfirmed Vital Signs Blood pressure diastolic 84 mm Hg 07/02/2025 Lnbxxc25.5 in07/02/2025lood pressure gfsqheop928 mm Hg07/02/20257527Zsyume218.4 lbs 07/02/2025BMI30.62 kg/m207/02/2025 Encounters Encounter Location Date Provider Diagnosis [facility] [address] [place] [address] 11/24/2024 Darrel Berger STD exposure Z20.2 [facility] [address] [place] [address] 06/02/2025 Darrel Berger [facility] [place] [address] 07/02/2025Domelissa Correa adult Z00.00 Assessments Encounter Date Diagnosis (ICD Code) Assessment Notes Treatment Notes Treatment Clinical Notes Section Notes 07/02/2025 Well adult (ICD-10 - Z00.00) 11/24/2024STD exposure (ICD-10 - Z20.2) Plan Of Treatment Pending Test Test Name Order Date CMP (COMPLETE METABOLIC PANEL) 4 HEMOGLOBIN A1C (GLYCO) 07/02/2025 HEMOGLOBIN A1C (GLYCO) 05/15/2024 INSULIN, TOTAL 05/15/2024 LIPID PANEL (CHOL/TRIG/HDL/LDL) 07/02/20 25 LIPID PANEL (CHOL/TRIG/HDL/LDL) 05/15/20 24 CBC WITH DIFF 05/15/2024 ACUTE HEPATITIS PANEL 05/17/2024 COMPREHENSIVE METABOLIC PROFILE WITH GFR 05/17/2024 CHLAMYDIA AND GC (URINE, VAG, OR SWAB) - IH 05/22/2024 THYROID PANEL (T4/TSH/FREE T3) 4 THYROID PANEL (T4/TSH/FREE T3) 5 CMP (COMP MET ZARATE) w/eGFR CKD-EPI 2024 CBC WITH DIFF 07/02/2025 Insurance Providers Payer Name Payer Address Payer Phone Subscriber Number Group Number Insured Name Patient Relationship to Insured Coverage Start Date Coverage End Date [facility] [address] [address] [place] [address] [phone] [id number] Lois Chongelf - patient is the insured Medical (General) History Medical History History ICD Code GERD (gastroesophageal reflux disease) K 21.9 Asthma J45.909 Surgical History Surgery Date(Month/Year) surgical repair lt thumb fracture Tonsillectomy
[2025-07-03 09:28] LABS: Hematocrit 44.7 % (42.0-54.0); Hemoglobin 14.8 g/dL (14.0-18.0); Immature Granulocytes Abs Auto 0.01 10^3/uL (0.00-0.03); Immature Granulocytes Pct Auto 0.1 % (0.0-0.5); Lymphocytes Absolute Auto 2.3 10^3/uL (1.2-3.8); Mean Corpuscular HGB Conc 33.1 g/dL (29.9-35.2); Mean Corpuscular Hemoglobin 29.7 pg (25.9-34.0); Mean Corpuscular Volume 89.8 fL (80.0-94.0); Platelet Count 240 10^3/uL (150-450); Red Blood Count 4.98 10^6/uL (4.70-6.10); White Blood Count 7.0 10^3/uL (4.0-11.0)
[2025-07-03 10:25] LABS: Anion Gap 10.2; Blood Urea Nitrogen 16.0 mg/dL (7.0-18.0); Calcium 9.0 mg/dL (8.5-10.1); Carbon Dioxide 30.1 mmol/L (21.0-32.0); Chloride 111 mmol/L (98-107); Estimated GFR (African America >60 (>=60 mL/min/1.73m^2); Estimated GFR (Non-African Ame >60 (>=60 mL/min/1.73m^2); Glucose 95 mg/dL (74-106); Potassium 4.3 mmol/L (3.5-5.1); Sodium 147 mmol/L (136-145)
[2025-07-03 10:26] LABS: Alanine Aminotransferase 35 U/L (16-63); Albumin Globulin Ratio 1.0; Albumin Level 3.4 g/dL (3.4-5.0); Alkaline Phosphatase 78 U/L (46-116); Aspartate Amino Transferase 17 U/L (15-37); Cholesterol 204 mg/dL (<=200); Globulin 3.3 g/dL; HDL Cholesterol 31 mg/dL (40-60); Total Protein 6.7 g/dL (6.4-8.2); Triglycerides 94 mg/dL (<=150); VLDL CHOLESTEROL 18.8 mg/dL
[2025-07-03 10:27] LABS: Free T3 2.81 pg/mL (2.18-3.98); Thyroid Stimulating Hormone 1.220 uIU/mL (0.358-3.740)
== END 2025-07-03 09:05 | disposition home or self-care (01) ==
LOC: LAB 09:06
PROVIDERS: PCP Family Medicine; Visit Provider Family Medicine
DX: Z00.00 Encounter for general adult medical examination without abnormal findings (principal)
CPT/HCPCS: 36415; 80053; 80061; 83036; 84436; 84443; 84481; 85025

== ENCOUNTER 2025-08-20 10:35 | Emergency (ER) | payer OTHER, SELFPAY ==
[2025-08-20] VITALS (28 sets, daily range): BP systolic 82–116; BP diastolic 58–77; PULSE 60; TEMP 36.3; O2SAT 95–100; BMI 30.1
--- NOTE | 2025-08-20 11:03 | XR_ITS ---
The [address] [address] Patient Name: RICH CAIN MRN: [id number] date: 1990 Sex: M Assigned Patient Location: ED.MAIN Current Patient Location: ED.MAIN Accession/Order Number: [id number] Exam Date: 08/20/2025 11:43 Report Date: 08/20/2025 12:18 At the request of: TERA RAMOS MD Procedure: XR knee LT 2V CLINICAL HISTORY: Left leg and knee pain following fall LEFT FEMUR - 2 views COMPARISON: None AP and lateral views were obtained. There is a fracture at the patella which will be discussed on the study. The femur is intact. There is no dislocation at the hip or knee. No soft tissue swelling is noted. XR/XR knee LT 2V IMPRESSION: NO EVIDENCE OF FEMUR FRACTURE. LEFT KNEE - 2 views COMPARISON: None AP and lateral views were obtained. There is a transverse fracture at the mid to upper pole of the patella with distraction of the fragments by at least 15 mm. There is also comminution with additional fracture clefts extending to the superior and inferior pole. No other fractures or dislocation are seen. There is a trace of joint fluid. No significant soft tissue swelling is seen. IMPRESSION: FRACTURES OF THE PATELLA. LEFT TIBIA AND FIBULA - 2 views COMPARISON: None AP and lateral views of the left tibia and fibula were obtained. The above described patellar fracture is again visualized. There is no additional fracture, dislocation or bony destruction. There are no focal soft tissue abnormalities. IMPRESSION: PATELLAR FRACTURE. NO ADDITIONAL ACUTE BONY INJURY AT THE LOWER LEG. Impression dictated by: Francia Corrales M.D. 08/20/2025 12:18 PM Dictation Location: [place] [address] Electronically authenticated by: [id number] Y Date: 08/20/2025 12:18
--- NOTE | 2025-08-20 11:13 | XR_ITS ---
The [address] [address] Patient Name: RICH CAIN MRN: [id number] date: 1990 Sex: M Assigned Patient Location: ED.MAIN Current Patient Location: ED.MAIN Accession/Order Number: [id number] Exam Date: 08/20/2025 11:43 Report Date: 08/20/2025 12:18 At the request of: TERA RAMOS MD Procedure: XR knee LT 2V CLINICAL HISTORY: Left leg and knee pain following fall LEFT FEMUR - 2 views COMPARISON: None AP and lateral views were obtained. There is a fracture at the patella which will be discussed on the study. The femur is intact. There is no dislocation at the hip or knee. No soft tissue swelling is noted. XR/XR femur LT 2V IMPRESSION: NO EVIDENCE OF FEMUR FRACTURE. LEFT KNEE - 2 views COMPARISON: None AP and lateral views were obtained. There is a transverse fracture at the mid to upper pole of the patella with distraction of the fragments by at least 15 mm. There is also comminution with additional fracture clefts extending to the superior and inferior pole. No other fractures or dislocation are seen. There is a trace of joint fluid. No significant soft tissue swelling is seen. IMPRESSION: FRACTURES OF THE PATELLA. LEFT TIBIA AND FIBULA - 2 views COMPARISON: None AP and lateral views of the left tibia and fibula were obtained. The above described patellar fracture is again visualized. There is no additional fracture, dislocation or bony destruction. There are no focal soft tissue abnormalities. IMPRESSION: PATELLAR FRACTURE. NO ADDITIONAL ACUTE BONY INJURY AT THE LOWER LEG. Impression dictated by: Francia Corrales M.D. 08/20/2025 12:18 PM Dictation Location: [place] [address] Electronically authenticated by: [id number] Y Date: 08/20/2025 12:18
--- NOTE | 2025-08-20 11:13 | XR_ITS ---
The [address] [address] Patient Name: RICH CAIN MRN: [id number] date: 1990 Sex: M Assigned Patient Location: ED.MAIN Current Patient Location: ED.MAIN Accession/Order Number: [id number] Exam Date: 08/20/2025 11:43 Report Date: 08/20/2025 12:18 At the request of: TERA RAMOS MD Procedure: XR knee LT 2V CLINICAL HISTORY: Left leg and knee pain following fall LEFT FEMUR - 2 views COMPARISON: None AP and lateral views were obtained. There is a fracture at the patella which will be discussed on the study. The femur is intact. There is no dislocation at the hip or knee. No soft tissue swelling is noted. XR/XR tibia fibula LT 2V IMPRESSION: NO EVIDENCE OF FEMUR FRACTURE. LEFT KNEE - 2 views COMPARISON: None AP and lateral views were obtained. There is a transverse fracture at the mid to upper pole of the patella with distraction of the fragments by at least 15 mm. There is also comminution with additional fracture clefts extending to the superior and inferior pole. No other fractures or dislocation are seen. There is a trace of joint fluid. No significant soft tissue swelling is seen. IMPRESSION: FRACTURES OF THE PATELLA. LEFT TIBIA AND FIBULA - 2 views COMPARISON: None AP and lateral views of the left tibia and fibula were obtained. The above described patellar fracture is again visualized. There is no additional fracture, dislocation or bony destruction. There are no focal soft tissue abnormalities. IMPRESSION: PATELLAR FRACTURE. NO ADDITIONAL ACUTE BONY INJURY AT THE LOWER LEG. Impression dictated by: Francia Corrales M.D. 08/20/2025 12:18 PM Dictation Location: [place] [address] Electronically authenticated by: [id number] Y Date: 08/20/2025 12:18
--- OUTSIDE RECORDS SUMMARY | 2025-08-20 11:16 | XMS_ITS | Clinical Summary ---
Author Organization [facility] Healthcare Address [address] [place] [address] Care Team Providers Care Business Analysis Consultant Name Role Phone Unavailable Primary Care Provider Unavailabl e Social History Tobacco UseTypesPacks/DayYears UsedDateSmoking Tobacco: Never AssessedSex and Gender InformationValueDate RecordedSex Assigned at BirthNot on fileLegal Sex Male11/14/2022 11:06 PM EDTGender IdentityNot on fileSexual OrientationNot on file Last Filed Vital Signs Vital SignReadingTime TakenCommentsBlood Pressure--Pulse--Temperature-- Respiratory Rate--Oxygen Saturation--Inhaled Oxygen Concentration--Afhvuq71.3 kg (210 lb)11/07/2020 12:00 PM ESTHeight--Body Mass Index-- Plan of Treatment Not on file
--- OUTSIDE RECORDS SUMMARY | 2025-08-20 11:16 | XMS_ITS | Clinical Summary ---
Author Organization The [facility] Address [address] [place] [address] Care Team Providers Care Hydraulic Plumber Helper Name Role Phone Unavailable Primary Care Provider Unavailabl e Social History Tobacco UseTypesPacks/DayYears UsedDateSmoking Tobacco: Never AssessedSex and Gender InformationValueDate RecordedSex Assigned at BirthNot on fileLegal Sex Male03/01/2022 12:28 AM EDTGender IdentityNot on fileSexual OrientationNot on file Last Filed Vital Signs Vital SignReadingTime TakenCommentsBlood Pressure--Pulse--Temperature-- Respiratory Rate--Oxygen Saturation--Inhaled Oxygen Concentration--Qaerzc92.7 kg (200 lb)04/29/2020 2:10 PM KQBIbazrt507.3 cm (5' 9 )04/29/2020 2:10 PM EDTBody Mass Index29.53004/29/2020 2:10 PM EDT Plan of Treatment Not on file
--- OUTSIDE RECORDS SUMMARY | 2025-08-20 11:16 | XMS_ITS | Clinical Summary ---
Author Organization [facility] Address [address] [place] [address] Care Team Providers Care Budget Consultant Name Role Phone Yobany Gifford MD Primary Care Provider [phone] Medications MedicationSigDispense QuantityRefillsLast FilledStart DateEnd DateStatus METAMUCIL POWDER 1 tablespoon kingw065Active STOOL SOFTENER/LAX SOFTGEL once dkmto475Active ADVAIR 100/50 DISKUS twice ltrdh855Active ALBUTEROL 90MCG INHALER as brtyfq155Active DELORES 60MG TABLET twice adyuy890Active MIRALAX POWDER 17 grams twice daily 1 month supply Active Active Problems ProblemNoted DateDiagnosed CuyyOyxmgchsmasj23/17/2004Incontinence of feces 11/17/2003 Social History Tobacco UseTypesPacks/DayYears UsedDateSmoking Tobacco: NeverAlcohol UseStandard Drinks/WeekCommentsNo0 (1 standard drink = 0.6 oz pure alcohol)Sex and Gender InformationValueDate RecordedSex Assigned at BirthNot on fileLegal SexMale 08/03/2012 10:02 AM ESTGender IdentityNot on fileSexual OrientationNot on file Last Filed Vital Signs Vital SignReadingTime TakenCommentsBlood Yinkzwhe384/7503 8:00 AM EST Fmwdp2881 8:00 AM KKFTichkbtstok43.6 ??C (96 ??F)11/12/2003 8:00 AM EST Respiratory Scvt7475 8:00 AM ESTOxygen Saturation--Inhaled Oxygen Concentration--Oxokad19.9 kg (114 lb 6.7 oz)05/09/2004 11:00 AM ZOIKsmbkm013.5 cm (5' 1.22 )05/09/2004 11:00 AM EDTBody Mass Index21.46005/09/2004 11:00 AM EDT Plan of Treatment Health MaintenanceDue DateLast DoneCommentsAnxiety Rynmwzbrj85/22/2007Depression Zpzdrqcat55/22/2007HIV Seobiknjr48/22/2007Hepatitis C Wzpiqrezn47/22/2007 DTaP,Tdap,Td Vaccine (1 - Tdap)2008Hepatitis B Vaccine (1 of 3 - 19+ 3- dose series)2008HPV Vaccine (1 - 3-dose SCDM series)2016Lipid Wipuweqyx89/22/2024ovid-19 Vaccine (1 - 2024- season)2025Influenza Vaccine (#1)2025 Care Teams Team MemberRelationshipSpecialtyStart DateEnd Date Yobany Gifford MD [address] [place] [address] PCP - General11/12/03
--- OUTSIDE RECORDS SUMMARY | 2025-08-20 11:17 | XMS_ITS | Patient Health Record ---
Author Organization The [facility] [place] Address [address] [place] [address] Care Team Providers Care Lightning Rod Erector Name Role Phone Darrel Berger Primary Care Provider Allergies No Known Allergies Results Component Value Reference Range Notes TSH Reviewed date:07/03/2025 12:29:58 PM Interpretation: Performing Lab: Notes/Report: [facility] , Thyroid Stimulating Hormone 1.220 0.358-3.740 u IU/mL Performing Lab:see noteML - [facility] LBT4 Reviewed date:07/03/2025 12:29:58 PM Interpretation: Performing Lab: Notes/Report: [facility] ,T4 Thyroxine7.404.50-12.10 ug/dLPerforming Lab:see noteML - [facility] LBLIPID PROFILE Reviewed date:07/03/2025 12:29:58 PM Interpretation: Performing Lab: Notes/Report: [facility] ,Jucorpsyaavgw17<=150 mg/tDPwsxczmqkwb151<=200 mg/dLHDL Ckmxnubjyvx1573-33 mg/dL > or =60 mg/dl - LOW CARDIOVASCULAR RISK <40 mg/dl - HIGH CARDIOVASCULAR RISK LDL Cholesterol Nzmtgrrppr959.0 <100 mg/dl OPTIMAL 100-129 mg/dl NEAR OR ABOVE OPTIMAL 130-159 mg/dl BORDERLINE HIGH 160-189 mg/dl HIGH >190 mg/dl VERY HIGH VLDL YLWTKZZZVAC08.8Chol HDL Ratio6.6 3.3 - 4.4 LOW RISK 4.4 - 7.1 AVERAGE RISK 7.1 - 11.0 MODERATE RISK >11.0 HIGH RISK Performing Lab:see noteML - [facility] LBGLYCOHEMOGLOBIN A1C Reviewed date:07/03/2025 12:29:58 PM Interpretation: Performing Lab: Notes/Report: [facility] ,Glycohemoglobin A1C5.34.5-6.2 % ADA RECOMMENDED LIMIT 4.0 - 6.0 ADA THERAPEUTIC TARGET < 7.0 ACTION SUGGESTED > 7.0 Estimated Average Zvtufgo877Lpixzqsajr Lab:see noteML - [facility] LB FREE T3 Reviewed date:07/03/2025 12:29:58 PM Interpretation: Performing Lab: Notes/Report: [facility] ,Free T32.812.18-3.98 pg/mLPerforming Lab:see note - [facility] LB CBC AUTO DIFF Reviewed date:07/03/2025 12:29:58 PM Interpretation: Performing Lab: Notes/Report: [facility] ,White Blood Count7.04.0-11.0 10 3/uLRed Blood Count4.984.70-6.10 10 6/uL Zkkarnhaim96.814.0-18.0 g/pSAtwroackkq51.742.0-54.0 %Mean Corpuscular Cgdgai12.8 80.0-94.0 fLMean Corpuscular Xzintdfcwq18.725.9-34.0 pgMean Corpuscular HGB Conc 33.129.9-35.2 g/dLRed Cell Distribution Width12.911.0-15.0 %Platelet Hrmpw214 150-450 10 3/uLMean Platelet Oazmwk03.39.5-13.5 fLNeutrophils Percent Auto54.1 43.0-75.0 %Lymphocytes Percent Auto32.420.5-60.0 %Monocytes Percent Auto9.41.7- 12.0 %Eosinophils Percent Auto3.70.9-7.0 %Basophils Percent Auto0.30.2-2.0 % Immature Granulocytes Pct Auto0.10.0-0.5 %Neutrophils Absolute Auto3.81.4-6.5 10 3/uLLymphocytes Absolute Auto2.31.2-3.8 10 3/uLMonocytes Absolute Auto0.70.3-0.8 10 3/uLEosinophils Absolute Auto0.30.0-0.7 10 3/uLBasophils Absolute Auto0.00.0- 0.1 10 3/uLImmature Granulocytes Abs Auto0.010.00-0.03 10 3/uLPerforming Lab:see noteML - [facility] LBPROF 14(COMP METB) Reviewed date:07/03/2025 12:29:58 PM Interpretation: Performing Lab: Notes/Report: [facility] ,Vsunrm221142-277 mmol/LPotassium4.33.5-5.1 mmol/ENzmsdiqx20487-670 mmol/LCarbon Ggnliur84.121.0-32.0 mmol/LAnion Gap10.3Knpehic2832-754 mg/dLBlood Urea Nitrogen 16.07.0-18.0 mg/dLCreatinine0.980.70-1.30 mg/dLEstimated GFR ( Consuelo>60 >=60 mL/min/1.73m 2Estimated GFR (Non- Meena>60>=60 mL/min/1.73m 2BUN Creatinine Ratio16.5Knmmhwd7.08.5-10.1 mg/dLBilirubin Total0.30.2-1.0 mg/dL Aspartate Amino Ptrusyvmhnl7768-40 U/LAlanine Mectawzspuvenckl6962-16 U/L Alkaline Fmvdtxpmxri8160-265 U/LTotal Protein6.76.4-8.2 g/dLAlbumin Level3.43.4- 5.0 g/dLGlobulin3.3Albumin Globulin Ratio1.0Performing Lab:see noteML - [facility] LB Reason For Referral No Information Medications Medication SIG (Take, Route, Frequency, Duration) Notes Start Date End Date Status Omeprazole 40 MG TAKE 1 CAPSULE BY [facility] 30 MINUTES BEFORE MORNING MEAL EVERY DAY [...] Status W/U Status Risk Notes Problem Asthma (931611686) Asthma (J45.909) ActiveconfirmedProblemGastroesophageal reflux disease (443707207)GERD (gastroesophageal reflux disease) (K21.9)ActiveconfirmedProblemWell adult (573089847)Well adult (Z00.00)ActiveconfirmedProblemExposure to sexually transmissible disorder (event) (424344888)STD exposure (Z20.2)Activeconfirmed Vital Signs Blood pressure diastolic 84 mm Hg 07/02/2025 Eyudtu12.5 in07/02/2025lood pressure fymatifo370 mm Hg07/02/20252402Aleufx898.4 lbs 07/02/2025BMI30.62 kg/m207/02/2025 Encounters Encounter Location Date Provider Diagnosis [facility] [address] [place] [address] 07/02/2025 Darrel Berger Well adult Z00.00 [facility] ([place], [place]) [address] [place] [address] 11/24/2024 Darrel Berger STD exposure Z20.2 [facility] [address] [place] [address] 06/02/2025 Darrel Walkery [facility] [place] [address] 07/03/2025Darrel Berger Assessments Encounter Date Diagnosis (ICD Code) Assessment Notes Treatment Notes Treatment Clinical Notes Section Notes 07/02/2025 Well adult (ICD-10 - Z00.00) 11/24/2024STD exposure (ICD-10 - Z20.2) Plan Of Treatment Pending Test Test Name Order Date CMP (COMPLETE METABOLIC PANEL) 4 HEMOGLOBIN A1C (GLYCO) 07/02/2025 HEMOGLOBIN A1C (GLYCO) 05/15/2024 INSULIN, TOTAL 05/15/2024 LIPID PANEL (CHOL/TRIG/HDL/LDL) 05/15/20 24 LIPID PANEL (CHOL/TRIG/HDL/LDL) 07/02/20 25 CBC WITH DIFF (EXP 07/2025) 05/15/2024 ACUTE HEPATITIS PANEL 05/17/2024 COMPREHENSIVE METABOLIC [...] Insured Coverage Start Date Coverage End Date [facility] [address] [address] [place] [id number] Lois Chongelf - patient is the insured Medical (General) History Medical History History ICD Code GERD (gastroesophageal reflux disease) K 21.9 Asthma J45.909 Surgical History Surgery Date(Month/Year) surgical repair lt thumb fracture Tonsillectomy
[2025-08-20 11:20] LABS: Hematocrit 44.9 % (42.0-54.0); Hemoglobin 15.2 g/dL (14.0-18.0); Immature Granulocytes Abs Auto 0.02 10^3/uL (0.00-0.03); Immature Granulocytes Pct Auto 0.2 % (0.0-0.5); Lymphocytes Absolute Auto 3.8 10^3/uL (1.2-3.8); Mean Corpuscular HGB Conc 33.9 g/dL (29.9-35.2); Mean Corpuscular Hemoglobin 30.0 pg (25.9-34.0); Mean Corpuscular Volume 88.7 fL (80.0-94.0); Platelet Count 276 10^3/uL (150-450); Red Blood Count 5.06 10^6/uL (4.70-6.10); White Blood Count 8.0 10^3/uL (4.0-11.0)
[2025-08-20] MEDS: 0.9 % SODIUM CHLORIDE 1,000 ML 1000 ML IV (11:20)
[2025-08-20] MEDS: HYDROMORPHONE HCL 0.5 MG/0.5 ML SYRINGE IV ×2 (11:21→16:05)
[2025-08-20] MEDS: KETOROLAC TROMETHAMINE 30 MG/ML VIAL IVP (11:23)
[2025-08-20] MEDS: CEFAZOLIN SODIUM/DEXTROSE,ISO 2 GM/50 ML PIGGYBACK IV (11:28)
[2025-08-20 11:33] LABS: Alanine Aminotransferase 34 U/L (16-63); Albumin Globulin Ratio 1.1; Albumin Level 3.4 g/dL (3.4-5.0); Alkaline Phosphatase 69 U/L (46-116); Anion Gap 12.0; Aspartate Amino Transferase 17 U/L (15-37); Blood Urea Nitrogen 16.0 mg/dL (7.0-18.0); Calcium 8.9 mg/dL (8.5-10.1); Carbon Dioxide 28.5 mmol/L (21.0-32.0); Chloride 107 mmol/L (98-107); Estimated GFR (African America >60 (>=60 mL/min/1.73m^2); Estimated GFR (Non-African Ame >60 (>=60 mL/min/1.73m^2); Globulin 3.2 g/dL; Glucose 123 mg/dL (74-106); Potassium 3.5 mmol/L (3.5-5.1); Sodium 144 mmol/L (136-145); Total Protein 6.6 g/dL (6.4-8.2)
--- NOTE | 2025-08-20 13:01 | ED_ITS ---
HPI HPI - Extremity Injury (Lower) General Chief Complaint: Fall Stated Complaint: FALL; KNEE PAIN Time Seen by Provider: 08/20/25 11:07 Source: patient Mode of arrival: Wheelchair History of Present Illness HPI Narrative: the patient is a 35-year-old male who fell on his left knee just before arrival brought to us by private car after he fell on his left knee. The patient presented pale and distressed because of the pain he is not able to bend his left knee and there is an obvious deformity Related Data Home Medications ?Medication ?Instructions ?Recorded ?Confirmed omeprazole 40 mg capsule,delayed mg 08/20/25 release Allergies Allergy/AdvReac Type Severity Reaction Status Date / Time No Known Drug Allergies Allergy Verified 08/20/25 10:57 Opioid HPI Opioid Management Most Recent Pain and Opioid Data: Last Pain Scale 4 Today, 12:46 Last ED Pain Assessment Today, 12:46 Last MAR Pain Assessment Today, 11:23 Review of Systems ROS Status of ROS 10 or more systems reviewed and unremark able except as noted in history and below PFSH PFSH Social History Little interest or pleasure in doing things: not at all Feeling down, depressed, or hopeless: not at all Exam Narrative Exam Narrative: Nurses notes and vital signs reviewed and patient is not hypoxic. General: Well-appearing and in no apparent distress. Skin: Warm, dry, no pallor noted. No rash. Head: Normocephalic, atraumatic. Neck: Supple, non-tender. Cardiovascular: Regular Rate and Rhythm without murmur, gallop or rub. Respiratory: No accessory muscle use or respiratory distress. Lungs are clear to auscultation, no wheezing, rales or rhonchi Chest Wall: no tenderness Musculoskeletal: Significant swelling of the left knee with a deformity to the patella that shows up obvious fracture, no vascular injury detected and the patient is unable to bend his knee because of the pain GI: Abdomen is soft, non-distended. Normal bowel sounds. No masses appreciated. No tenderness to palpation. No rebound, guarding, or rigidity noted. Psychiatric: Cooperative and interactive. Normal mood and affect. Constitutional Vital Signs, click to edit/add: Last Vital Signs Temp 97.4 F L 08/20/25 10:47 Pulse 60 08/20/25 10:47 Resp 20 08/20/25 10:47 BP 106/76 08/20/25 12:30 Pulse Ox 100 08/20/25 12:46 O2 Del Method Room Air 08/20/25 10:47 Course Vital Signs Vital signs: Vital Signs Temperature 97.4 F L 08/20/25 10:47 Pulse Rate 60 08/20/25 10:47 Respiratory Rate 20 08/20/25 10:47 Blood Pressure 82/62 L 08/20/25 10:47 Pulse Oximetry 100 08/20/25 10:47 Oxygen Delivery Method Room Air 08/20/25 10:47 Temperature 97.4 F L 08/20/25 10:47 Pulse Rate 60 08/20/25 10:47 Respiratory Rate 20 08/20/25 10:47 Blood Pressure 106/76 08/20/25 12:30 Pulse Oximetry 100 08/20/25 12:46 Oxygen Delivery Method Room Air 08/20/25 10:47 MDM - Extremity Injury (Lower) MDM Narrative Medical decision making narrative: Upon arrival the patient was hypotensive and pale because of the pain and mostly vasovagal CBC and chemistry initially showed no acute pathology with no drop in hemoglobin as it was within normal The patient was provided with Dilaudid as well as IV fluid after which she is feeling much better X-ray of the femur as well as x-ray of the tibia and fibula showed no acute pathology in the left side but there is obvious fracture of the patella with There is a transverse fracture at the mid to upper pole of the patella with distraction of the fragments by at least 15 mm. There is also comminution with additional fracture clefts extending to the superior and inferior pole The patient initially was discussed with Dr. Billy and because of the patient severe pain the patient will be transferred to [facility]' Patient case discussed with and he accepted the patient Knee immobilizer applied Lab Data Labs: Lab Results 08/20/25 Range/Units 11:05 WBC 8.0 (4.0-11.0) 10^3/uL RBC 5.06 (4.70-6.10) 10^6/uL Hgb 15.2 (14.0-18.0) g/dL Hct 44.9 (42.0-54.0) % MCV 88.7 (80.0-94.0) fL MCH 30.0 (25.9-34.0) pg MCHC 33.9 (29.9-35.2) g/dL RDW 12.7 (11.0-15.0) % Plt Count 276 (150-450) 10^3/uL MPV 10.3 (9.5-13.5) fL Neut % (Auto) 42.7 L (43.0-75.0) % Lymph % (Auto) 47.6 (20.5-60.0) % [place] % (Auto) 7.0 (1.7-12.0) % Eos % (Auto) 2.0 (0.9-7.0) % Baso % (Auto) 0.5 (0.2-2.0) % Neut # (Auto) 3.4 (1.4-6.5) 10^3/uL Lymph # (Auto) 3.8 (1.2-3.8) 10^3/uL [place] # (Auto) 0.6 (0.3-0.8) 10^3/uL Eos # (Auto) 0.2 (0.0-0.7) 10^3/uL Baso # (Auto) 0.0 (0.0-0.1) 10^3/uL Abs Immat Gran (auto) 0.02 (0.00-0.03) 10^3/uL Imm/Tot Granulo (auto) 0.2 (0.0-0.5) % Sodium 144 (136-145) mmol/L Potassium 3.5 (3.5-5.1) mmol/L Chloride 107 (98-107) mmol/L Carbon Dioxide 28.5 (21.0-32.0) mmol/L Anion Gap 12.0 BUN 16.0 (7.0-18.0) mg/dL Creatinine 1.16 (0.70-1.30) mg/dL Est GFR ( Amer) >60 (>=60 mL/min/1.73m^2) Est GFR (Non-Af Amer) >60 (>=60 mL/min/1.73m^2) BUN/Creatinine Ratio 13.8 Glucose 123 H (74-106) mg/dL Calcium 8.9 (8.5-10.1) mg/dL Total Bilirubin 0.4 (0.2-1.0) mg/dL AST 17 (15-37) U/L ALT 34 (16-63) U/L Alkaline Phosphatase 69 (46-116) U/L Total Protein 6.6 (6.4-8.2) g/dL Albumin 3.4 (3.4-5.0) g/dL Globulin 3.2 g/dL Albumin/Globulin Ratio 1.1 Discharge Plan Discharge Chief Complaint: Fall Clinical Impression: Fall, Patella fracture, Intractable pain Patient Disposition: [facility]
== END 2025-08-20 17:05 | disposition short-term general hospital (02) ==
PROVIDERS: Emergency Provider Emergency Medicine; PCP Family Medicine
DX: S82.032A Displaced transverse fracture of left patella, initial encounter for closed fracture (principal); W19.XXXA Unspecified fall, initial encounter; M25.562 Pain in left knee
CPT/HCPCS: 36415; 73552; 73560; 73590; 80053; 85025; 96365; 96375; 96376; 99285; J0690; J1171; J1885; J2405